=== PATIENT | male | born 1930 | race Caucasian/White ===

== ENCOUNTER 2017-09-24 11:55 | Emergency (ER) | payer OTHER ==
[~2017-09-24] VITALS: Ht 171.5 cm; Wt 67.1 kg
[~2017-09-24 11:55] MED LIST: ALLO100T PO; CLOP1TAB15 PO; FRRG PO; GARL1TAB13 PO; GLUC10007 PO; LISI5TAB3 PO; LVNIS30 SQ; PRAV20TA PO; PROB500T8 PO; RXC5 PO; SNK PO
[2017-09-24 12:05] VITALS: TEMP 36.3; Ht 171.5 cm; Wt 67.1 kg
[2017-09-24] MEDS ORDERED: DOXYCYCLINE HYCLATE 100 MG CAP PO STA (13:03)
[2017-09-24 13:17] VITALS: BP 173/90; PULSE 66; O2SAT 99
--- NOTE | 2017-09-24 13:38 | EMERGENCY ROOM VISIT NOTE ---
ED Visit Note First contact with patient: 12:37 CHIEF COMPLAINT: Tick bite HISTORY OF PRESENT ILLNESS: This 87-year-old male presents to the emergency department with concerns for a tick bite. He states that he noticed irritation last night when he went to bed, and noticed that the tick was embedded this morning when he got up to shower. 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 He is unsure how long the tick has been attached, but likely at least 24 hours. Patient is concerned about Lyme disease, and states he would like to be covered for this. He was able to remove the entire tick this morning, with no retained parts. He denies any symptoms of headaches, fevers or chills, joint pain, nausea or vomiting, rash. His tetanus is up-to-date. REVIEW OF SYSTEMS: A complete 10 point review of systems was reviewed with the patient with pertinent positives and negatives as per history of present illness. All else were negative. PMH: Reviewed in chart. MEDICATIONS: Reviewed in chart SOCIAL HISTORY: Patient lives at home. Non-smoker, occasional alcohol use. ALLERGIES: Reviewed in chart PHYSICAL EXAM: Vital Signs: Reviewed Nurse's notes. There is a small zone of inflammation and erythema on the left anterior chest around the spot where the tick was embedded. The skin is otherwise clear. There is no drainage. There is no tenderness to palpation and it is not warm. NEUROLOGICAL: Alert and cooperative. Sensory and motor functions grossly intact. ED COURSE: I examined the patient. There is a small zone of erythema, nontender does not appear to be cellulitic. This area was marked with a skin marker. The area was then cleansed with chlorhexidine and a thin film of bacitracin was applied, the area was covered with a Band-Aid. The patient was given a single dose of doxycycline 200 mg for prophylaxis against Lyme disease. The patient was noted to be quite hypertensive, he reports that he has "white coat syndrome" and that this always happens and has been confirmed by his doctor. His blood pressure did improve on recheck. He was encouraged to follow up with his PCP regarding his blood pressure. Patient was instructed on follow-up and signs of infection to monitor for, he verbalized understanding. Patient was also given strict return precautions if his symptoms worsen, he verbalized understanding. Patient was discharged home in stable condition and ambulatory. Medication Reconciliation: I attest that I have personally reviewed the patient' s current medication list. Blood pressure screening: The patient was found to have an elevated blood pressure and was referred to their primary doctor for recheck and further treatment. I discussed patient with Dr. Bae, who also saw the patient and agrees my assessment and plan. Current/Historical Medications Scheduled Allopurinol (Zyloprim), 100 MG PO HS Clopidogrel (Plavix), 75 MG PO HS Enoxaparin (Lovenox), 30 MG SQ QAM Ferrous Gluconate (Ferrous Gluconate), 324 MG PO TIDM Garlic (Hm Garlic), 1 TAB PO HS Glucosamine Sulfate (Glucosamine), 1,000 MG PO HS Lisinopril (Zestril), 2.5 MG PO HS Pravastatin (Pravachol ), 20 MG PO HS Senna (Senna Lax), 2 TAB PO HS Scheduled PRN Oxycodone HCl (Oxycodone HCl), 5-10 MG PO Q4H PRN for Pain Probenecid (Benemid), 500 MG PO DAILY PRN for PRN Allergies Coded Allergies: Acetaminophen (Verified Allergy, Unknown, "bad reaction, but not life threatening", 06/25/16) Diphenhydramine (Verified Adverse Reaction, Severe, "LIFE THREATENING", HYPOTENSION-LASTED 8 WEEKS, 06/25/16) Quinolones (Verified Adverse Reaction, Intermediate, HALLUCINATIONS, ) Aspirin (Verified Adverse Reaction, Unknown, FELT DEPRESSED, 06/25/16) Cefadroxil (Verified Adverse Reaction, Unknown, HALLUCINATIONS, 06/25/16) Cinnamon (Verified Adverse Reaction, Unknown, HYPERACTIVITY, 06/25/16) Ciprofloxacin (Verified Adverse Reaction, Unknown, HALLUCINATIONS, 06/25/16) Clove Oil (Verified Adverse Reaction, Unknown, HYPERACTIVITY, 06/25/16) Codeine (Verified Adverse Reaction, Unknown, mental status change, 06/25/16) Vital Signs Date Time Temp Pulse Resp B/P (MAP) Pulse Ox O2 Delivery O2 Flow Rate FiO2 09/24/17 13:17 66 16 173/90 99 Room Air 09/24/17 12:28 180/99 183/90 09/24/17 12:05 36.3 84 18 208/85 98 Room Air Medications Administered Medications (Trade) Dose Ordered Sig/Chris Route Start Time Stop Time Status Last Admin Dose Admin Doxycycline Hyclate (Vibramycin Cap) 200 mg NOW STAT PO 09/24/17 13:03 09/24/17 13:05 DC 09/24/17 13:15 200 MG Departure Information Impression Primary Impression: Tick bite Dispostion Home / Self-Care Condition GOOD Referrals Hillary Catalan M.D. (PCP) Patient Instructions ED Bite Tick Abx Tx, My [facility] Additional Instructions DISCHARGE INSTRUCTIONS & TREATMENT: Keep the area clean, you may apply a thin film of bacitracin ointment and cover with a Band-Aid for the next 3 days. Watch the area for signs of infection, including increased redness, swelling, pain, drainage from the area, or fever/chills. Please follow-up with your primary care provider in the next few weeks to be rechecked for any concern of developing Lyme disease. Please see your PCP or return to the emergency department immediately for any signs of infection, headaches, fevers, joint pain, unusual rash, or any other concerns. Problem Qualifiers Primary Impression: Tick bite Encounter type: initial encounter Qualified Codes: W57.XXXA - Bitten or stung by nonvenomous insect and other nonvenomous arthropods, initial encounter
--- NOTE | 2017-09-24 13:40 | EMERGENCY ROOM VISIT NOTE ---
ED Visit Note First contact with patient: 12:37 I have personally seen and evaluated the patient with the physician school health assistant. I agree with the diagnostic/management decisions and have personally been involved in these decisions and agree with the diagnosis.
== END 2017-09-24 13:45 | disposition home or self-care (01) ==
LOC: C.EDB 11:56 → C.EDD 13:45
DX: S20.362A Insect bite (nonvenomous) of left front wall of thorax, initial encounter (principal); W57.XXXA Bitten or stung by nonvenomous insect and other nonvenomous arthropods, initial encounter; Y92.73 Farm field as the place of occurrence of the external cause; R03.0 Elevated blood-pressure reading, without diagnosis of hypertension

== ENCOUNTER 2019-05-02 08:30 | Observation (INO) ==
--- NOTE | 2019-04-10 08:45 | PAT Medication Instructions ---
Medication Instructions Date of Service April 10, 2019 Home Medications allopurinol 300 mg PO HS clopidogrel [Plavix] 75 mg PO DAILY garlic 100 mg PO DAILY glucos sul [id number] [Glucosamine Chondroitin] 1 cap PO DAILY pravastatin 20 mg PO HS ASK your prescriber and surgeon clopidogrel [Plavix] 75 mg PO DAILY STOP taking 2 weeks before surgery (or as soon as possible if surgery is within 2 weeks) garlic 100 mg PO DAILY glucos sul [id number] [Glucosamine Chondroitin] 1 cap PO DAILY Take evening before surgery allopurinol 300 mg PO HS pravastatin 20 mg PO HS Other Notes If you have any questions please call us at [phone] or [phone] or [phone] or [phone]
--- NOTE | 2019-04-10 10:43 | Anesthesiology Consultation ---
Date of Service April 10, 2019 Assessment & Plan (1) Encounter for pre-operative examination: - Plavix: to hold 7 days prior to surgery per surgeon/prescriber (per patient). - Hx interatrial shunt: per 2014 ECHO; reviewed with Dr. Connelly- will flag on chart/PMHX but nothing further needed prior to surgery from his perspective. - PCP addendum: 04/30/19: "It should be noted that patient is medically cleared for surgery pending his bleeding studies are normal the day of his surgery." Coags ordered for AM DOS. Chart Review Chart Review: Acceptable Risk for Surgery (pending coags AM DOS) and Patient seen in Pre Admission Testing Consults Requested none Teaching & Discussion Pre-Anesthesia Teaching/Discussion Notes: Instructed NPO after midnight before surgery,except medications with 15 cc of water. Medication instructions provided according to the PAT guidelines. ASA ASA3 Proposed Anesthesia Anesthesia Type: General Risk / Benefits Reviewed With: PT / POA / Parent / Guardian, Accepts Plan and Informed Consent Obtained History Surgery Operation Date: 05/02/19 10:20 Proposed Procedures p Left Open Inguinal Hernia Repair - Vivek Marks, , FACS Height/Weight Height: 5 ft 6.5 in Weight: 64.8 kg Allergies Allergy/AdvReac Type Severity Reaction Status Date / Time diphenhydramine Allergy Severe HYPOTENSION- Verified 05/02/19 08:55 SIGNIFICANT X 8 WEEKS acetaminophen Allergy Intermediate SKIN Verified 05/02/19 08:58 WEEPING cefadroxil Allergy Intermediate HALLUCINATI Verified 05/02/19 08:58 ONS ciprofloxacin Allergy Intermediate HALLUCINATI Verified 05/02/19 08:55 ONS Quinolones Allergy Intermediate HALLUCINATI Verified 05/02/19 08:58 ONS aspirin AdvReac Intermediate DEPRESSION Verified 05/02/19 08:58 cinnamon AdvReac Intermediate HYPERACTIVI Verified 05/02/19 08:58 TY clove AdvReac Intermediate HYPERACTIVI Verified 05/02/19 08:58 TY codeine AdvReac Intermediate MENTAL Verified 05/02/19 08:58 STATUS CHANGES Cipro AdvReac Unknown HALLUCINATI Verified 06/25/16 06:45 ONS Medications Home Medications Medication Instructions Recorded Confirmed Last Taken allopurinol 300 mg tablet 300 mg PO HS #90 tab 04/23/19 05/02/19 05/01/19 20:30 clopidogrel 75 mg tablet 75 mg PO DAILY #90 tab 04/23/19 05/02/19 04/25/19 pravastatin 20 mg tablet 20 mg PO HS #90 tab 04/23/19 05/02/19 05/01/19 20:00 probenecid 500 mg tablet 500 mg PO DAILY PRN #90 tab 04/23/19 05/02/19 Unknown triamcinolone acetonide 0.1 % 1 appln TOPICAL BID #80 gm 04/23/19 05/02/19 04/30/19 08:00 topical cream Glucosamine 1 cap PO DAILY 05/02/19 05/02/19 04/18/19 colchicine 0.6 mg PO BID PRN 05/02/19 05/02/19 Unknown garlic 1 cap PO DAILY 05/02/19 05/02/19 04/18/19 tramadol [Ultram] 50 - 100 mg PO Q4H PRN #15 tab 05/02/19 Unknown NPO Date Last Intake of Fluids: 05/01/19 Time Last Intake of Fluids: 22:00 Date Last Intake of Solids: 05/01/19 Time Last Intake of Solids: 22:00 Past Medical History Medical History Acquired foot drop (Acute) Benign essential hypertension (Acute) Cervicalgia (Acute) History of TIA (transient ischemic attack) (Acute) Hyperkalemia (Acute) Osteoarthritis of right knee (Acute) Osteoarthrosis, generalized, multiple joints (Acute) Personal history of colonic polyps (Acute) Encounter for pre-operative examination BPPV (benign paroxysmal positional vertigo) Osteoarthritis Hyperlipidemia TIA (transient ischemic attack) 2013= INITIALLY ON ASA 325 BUT SIGNIFICANT DEPRESSION SYMPTOMS SO PATIENT SWITCHED TO PLAVIX Gout Prostate cancer White coat syndrome with hypertension Emphysema lung PER CXR 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 Exercise / Class Metabolic Activity II 4-5 Yardwork/Stairs/Walk up hill (ACTIVE HORNER) Past Family History Family History Mother Family history of diabetes mellitus Father Family history of diabetes mellitus Sister Family history of diabetes mellitus Brother Family history of diabetes mellitus Past Surgical History Surgical History History of prostate surgery History of lumbar surgery TOTAL 4 BACK SURGERIES (HARDWARE INTACT) History of knee surgery LEFT/RIGHT History of knee replacement LEFT/RIGHT History of hip surgery RT History of colonoscopy History of arthroplasty of left ankle H/O wrist surgery LEFT History of adenoidectomy History of herniorrhaphy RT INGUINAL History of nasal septoplasty History of tonsillectomy History of tooth extraction Past Anesthesia History No Hx of Anesthesia Complications and No Family Hx of Anesthesia Complications History of PONV No Hx of PONV and No Hx of Motion Sickness Social History Smoking Status: Never smoker Do You Dip or Chew Tobacco: No Hx Alcohol Use: No Hx Substance Use: No substance use type: does not use Review of Systems Patient denies chest pain, shortness of breath, dyspnea on exertion, reflux, cough, wheezing, palpitations. Physical Exam Vital Signs Last Vital Signs Temp 36.2 C L 05/02/19 09:05 Pulse 73 05/02/19 09:05 Resp 20 05/02/19 09:05 BP 186/92 H 05/02/19 09:05 Pulse Ox 99 05/02/19 09:05 VITALS BP 168/78 ("white coat hypertension" per patient; PCP monitors home readings) P 72 TEMP 97.9 SP02 98%RA RESP 18 PHYSICAL Full neck and c-spine range of motion. Full TMJ range of motion. TMD 3 finger breaths Mallampati Score 2 Dentition: intact, several caps/bridges throughout Lungs: clear throughout to auscultation Cardiac: regular rate and rhythm, no murmurs noted Spine: normal Carotid arteries: negative bruit Extremities: no edema ENMT Mouth: + poor dentition; no dentition abnormality Thyromental Distance: > or= 3.5 Finger Breadths Mallampati Class: II Neck normal visual inspection and trachea midline; neck extension not limited Respiratory normal respiratory effort Auscultation: lungs clear to auscultation bilaterally Cardiovascular Rate/Rhythm: regular rate and regular rhythm Heart Sounds: no murmur Vessels: no carotid bruit Musculoskeletal Spine: normal cervical ROM Neurologic moves all extremities Motor/Sensory: no sensory deficit Psychiatric Orientation: alert and oriented x 3 Testing Laboratory Results 04/10/19 11:00 PT 10.9 Seconds (9.0-12.0) 05/02/19 09:04 INR 1.1 (0.9-1.1) 05/02/19 09:04 APTT 27.1 Seconds (21.0-31.0) 05/02/19 09:04 03/26/19 SODIUM 141 POTASSIUM 4.5 CHLORIDE 109 CO2 28 BUN 21 CREATININE 1.02 GLUCOSE 103 Electrocardiogram Date: 04/10/19 SR with occasional PVC's at 70bpm. LAFB. Chest X-Ray Date: 04/10/19 Findings: + NAD The heart is enlarged and there is atherosclerotic calcification of the thoracic aorta. The pulmonary vasculature is non-congested. Emphysema and chronic interstitial thickening are similar to previous. Degenerative change and hyperkyphosis are noted in the thoracic spine. Fusion hardware is seen throughout the lumbar region. Echocardiogram Date: 12/25/13 EF 55%. No RWMA. Mild cLVH. Nonspecific MV thickening. Mild AI. Eccentric jet of AI directed against anterior mitral leaflet. Trace to mild PI. Interatrial shunt noted.
--- NOTE | 2019-04-10 11:17 | XRay Report ---
TWO VIEW CHEST CLINICAL HISTORY: Preoperative examination. FINDINGS: PA and lateral chest radiographs are compared to study dated 06/02/2016 and correlated with chest CT dated 06/27/2016. The PA view is degraded by patient rotation. The heart is enlarged and ther e is atherosclerotic calcification of the thoracic aorta. The pulmonary vasculature is noncongested. Emphysema and chronic interstitial thickening are similar to previous. No airspace consolidation or p leural effusion is identified. There is no pneumothorax. The skeletal structures are osteopenic. Dege nerative change and hyperkyphosis are noted in the thoracic spine. Fusion hardware is seen throughout the lumbar region. IMPRESSION: Cardiomegaly and emphysema with no active disease in the chest. Electronically signed by: Bimal Moore M.D. 04/10/2019 11:16 AM
[2019-04-10 12:44] LABS: Basophils # (auto) 0.04 K/uL (0-0.2); Basophils % (auto) 0.8 %; Eosinophils # (auto) 0.26 K/uL (0-0.5); Hematocrit (blood only) 37.6 % (42-52); Hemoglobin 12.3 g/dL (14.0-18.0); Immature Granulocytes # (auto) 0.01 K/uL (0.00-0.02); Immature Granulocytes % (auto) 0.2 %; Lymphocytes # (auto) 1.63 K/uL (1.2-3.4); Mean Corpuscular Hgb Conc 32.7 g/dL (32-36); Mean Corpuscular Volume 97.4 fL (80-100); Mean Platelet Volume 11.4 fL (7.4-10.4); Monocytes # (auto) 0.32 K/uL (0.11-0.59); Monocytes % (auto) 6.1 %; Neutrophils # (auto) 2.99 K/uL (1.4-6.5); Neutrophils % (auto) 56.9 %; Platelet Count 203 K/uL (130-400); RDW Coefficient of Variation 14.4 % (11.5-14.5); RDW Standard Deviation 51.2 fL (36.4-46.3); Red Blood Count 3.86 M/uL (4.7-6.1); White Blood Count 5.25 K/uL (4.8-10.8)
[2019-04-10 12:54] LABS: Alanine Aminotransferase 28 U/L (12-78); Albumin Level 3.7 gm/dl (3.4-5.0); Alkaline Phosphatase 85 U/L (45-117); Aspartate Aminotransferase 28 U/L (15-37); Bilirubin Direct < 0.1 mg/dl (0-0.2); Bilirubin,Total 0.4 mg/dl (0.2-1); Total Protein 7.1 gm/dl (6.4-8.2)
[~2019-05-02 08:30] MED LIST changes: -ALLO100T PO; +CEFAZOLIN 2000MG 2,000 MG/15 ML SYR IV SCH; -CLOP1TAB15 PO; -FRRG PO; -GARL1TAB13 PO; -GLUC10007 PO; -LISI5TAB3 PO; +LR 15ML/HR IV SCH; -LVNIS30 SQ; -PRAV20TA PO; -PROB500T8 PO; -RXC5 PO; -SNK PO
[2019-05-02 09:25] LABS: INR 1.1 (0.9-1.1); Partial Thromboplastin Time 27.1 Seconds (21.0-31.0); Prothrombin Time 10.9 Seconds (9.0-12.0)
--- NOTE | 2019-05-02 09:59 | History & Physical Bridge Note ---
Date of Service May 02, 2019 History & Physical Bridge Note I have examined the patient, reviewed the History & Physical and in the interval since the performance of the History & Physical I have noted the following changes of clinical significance: no changes noted
[2019-05-02] MEDS ORDERED: BUPIVACAINE 0.5 % 5 MG/1 ML MPF 30ML VIAL ONE (10:03)
[2019-05-02] MEDS ORDERED: BUPIVACAINE LIPOSOME 1.3% 266 MG/20 ML VIAL ONE (10:03)
[2019-05-02] MEDS ORDERED: ONDANSETRON INJ 2 MG/ML 2 ML VIAL ONE (10:04)
[2019-05-02] MEDS ORDERED: LIDOCAINE HCL 2% 2 ML VIAL/AMP(20MG/ML) INFIL ONE (10:04)
[2019-05-02] MEDS ORDERED: PROPOFOL IV EMULSION 10 MG/ML 20 ML VIAL IV ONE (10:04)
[2019-05-02] MEDS ORDERED: fentaNYL citrate 100 MCG/2 ML VIAL ONE (10:04)
[2019-05-02] MEDS ORDERED: ATROPINE SULFATE 0.1 MG/ML 10ML SYR IV PRN (10:50)
[2019-05-02] MEDS ORDERED: ePHEDrine sulfate 50 MG/ML AMP IV PRN (10:50)
[2019-05-02] MEDS ORDERED: PROMETHAZINE HCL 12.5 MG in SODIUM CHLORIDE 0.9% 50 ML IV PRN (10:50)
[2019-05-02] MEDS ORDERED: fentaNYL citrate 100 MCG/2 ML VIAL IV PRN (10:50)
[2019-05-02] MEDS ORDERED: NALOXONE HCL 0.4 MG/1 ML VIAL/CARP IV PRN (10:50)
[2019-05-02] MEDS ORDERED: ONDANSETRON INJ 2 MG/ML 2 ML VIAL IV PRN ×2 (10:50→12:48)
[2019-05-02] MEDS ORDERED: LABETALOL HCL IV 5 MG/ML 20ML IV ONE (11:12)
--- NOTE | 2019-05-02 11:29 | Operative Report ---
Post Operative Report Pre & Post Diagnosis Operation Date: 05/02/19 10:20 Pre-Op Diagnosis: Left Inguinal Hernia Post-Op Diagnosis: Left Inguinal Hernia Procedure Operation Date: 05/02/19 10:20 Actual Procedures p Left Open Inguinal Hernia Repair(Left) - Vivek Marks DO, FREDI Surgeon Vivek Marks DO, FREDI Rubber Flap Tuber Machine Operator Lukasz Mcgill Estimated Blood Loss 4 Findings Consistent with Post-Op Diagnosis Indirect inguinal hernia, high ligation of the sac. Repaired with Atrium polypropylene mesh. Specimens Cord lipoma Hernia sac Anesthesia Type General Complications none Disposition Accompanied Patient To Recovery: No Disposition: Recovery Room Indications 89-year-old male with symptomatic left inguinal hernia, desires repair. Plan for left inguinal hernia repair. The risks of the procedure were discussed, all questions were answered, and the patient agreed to proceed with surgery as planned. Description of Procedure The patient was properly identified, consented, and taken to the operating room where he was placed in the supine position. General endotracheal anesthesia was induced. SCDs and a safety belt were placed. Preoperative antibiotics were administered. The patient's groins and abdomen were prepped and draped in the standard sterile fashion. A surgical timeout was performed and all parties were in agreement that this was the correct patient and procedure to be performed and we continued as planned. Local anesthetic in the form of 0.5% Marcaine was injected along the proposed incision site. An oblique incision was made in the left groin and deepened down to subcutaneous tissue with electrocautery. The aponeurosis of the external oblique muscle was cleared of investing tissue. A small incision was made in the aponeurosis of the external oblique muscle with a knife and lengthened under direct visualization with Metzenbaum scissors. Flaps were raised cephalad and caudad on the posterior portion of the external oblique. The ilioinguinal nerve was identified preserved throughout the case. The cord structures were circumferentially dissected and encircled with a Patricia drain. A moderate sized indirect hernia was noted. The hernia sac was dissected away from the cord structures. The hernia sac was opened and no abdominal contents were noted. It was then twisted on itself and suture ligated with a 2-0 Vicryl suture and reduced back into the abdomen. The hernia sac was sent as specimen. There was also small cord lipoma that was ligated with 3-0 silk tie and sent to pathology as specimen. Hemostasis was achieved within the wound. A piece of atrium polypropylene mesh was sewn into place using interrupted 0 Nurolon sutures. It was secured to the pubic tubercle medially, the inguinal ligament caudad, and the conjoined tendon cephalad. The internal ring was recreated by securing the tails and could accommodate the tip of the surgeons fifth digit. The wound was irrigated and hemostasis confirmed. The aponeurosis of the external oblique was then closed with a running 3-0 Vicryl suture. The wound was irrigated. Shea's fascia was reapproximated with interrupted 3-0 Vicryl suture. Exparel mixed with Marcaine was injected at the conclusion of the case. The skin was closed with a running 4-0 Monocryl subcuticular suture, and Dermabond was placed over the incision. The patient was extubated in the operating room and taken to the PACU for recovery without apparent incident. All sponge, instrument, and needle counts were correct at the conclusion of the procedure. The patient tolerated the procedure well. The physician's marketing operations assistant was present and scrubbed for the entire the case. He was critical in positioning the patient, prepping and draping, retraction and exposure, repair of the hernia, closure of the incisions, and placement of the dressings. I attest to the content of the Intraoperative Record and any orders documented therein. Any exceptions are noted below.
[2019-05-02] MEDS: LABETALOL HCL IV 5 MG/ML 20ML IV PRN ×3 (11:57→12:05)
--- NOTE | 2019-05-02 12:14 | Anesthesiology Progress Note ---
Date of Service May 02, 2019 Anesthesia Post Procedure Vital Signs Vital Signs: Temp Pulse Resp BP Pulse Ox 05/02/19 12:10 71 23 167/85 H 95 05/02/19 12:00 71 23 177/100 H 95 05/02/19 11:50 74 20 188/93 H 100 05/02/19 11:42 36.1 C L 69 14 189/81 H 99 05/02/19 09:05 36.2 C L 73 20 186/92 H 99 Transfer of Care Handoff Completed per policy Notes Mental Status: alert / awake / arousable Patient Amnestic to Procedure: Yes Nausea / Vomiting: adequately controlled Pain: adequately controlled Airway Patency, RR, SpO2: stable & adequate BP & HR: stable & adequate Hydration State: stable & adequate Anesthetic Complications: no major complications apparent
[2019-05-02] MEDS ORDERED: TRAMADOL HCL 50 MG TABLET PO PRN (12:48)
[2019-05-02] MEDS ORDERED: IBUPROFEN 200 MG TAB PO PRN (12:48)
[2019-05-02] MEDS ORDERED: MoRPHine SULFATE 4 MG/ML 1 ML CARP\\VIAL IV PRN (12:48)
[2019-05-02] MEDS ORDERED: ALLOPURINOL 300 MG TAB PO SCH (21:00)
[2019-05-02] MEDS ORDERED: PRAVASTATIN SOD 20 MG TAB PO SCH (21:00)
--- NOTE | 2019-05-03 07:52 | Surgery Progress Note ---
Date of Service May 03, 2019 Assessment & Plan (1) Inguinal hernia: s/p left inguinal hernia, doing well. discharge to home f/u in clinic wound care and activity restrictions reviewed Present on Admission?: Yes Subjective POD1 left inguinal hernia repair. Doing well, minimal pain. Physical Exam Constitutional: WD/WN, vitals as above Gastrointestinal (Abdomen): incision with dermabond, some echymosis, no infection, no recurrence Results & Data Vital Signs (Past 12 Hours) Vital Signs Temp Pulse Resp BP Pulse Ox 05/03/19 07:37 36.7 C 81 15 130/76 94 05/03/19 03:29 36.9 C 66 15 134/70 95 05/02/19 23:42 151/76 H 05/02/19 23:01 36.8 C 60 15 161/55 H 99
--- NOTE | 2019-05-03 07:55 | Anesthesiology Progress Note ---
Date of Service May 03, 2019 Anesthesia Post Procedure Vital Signs Vital Signs: Temp Pulse Resp BP BP Pulse Ox 05/03/19 07:37 36.7 C 81 15 130/76 94 05/03/19 03:29 36.9 C 66 15 134/70 95 05/02/19 23:42 151/76 H 05/02/19 23:01 36.8 C 60 15 161/55 H 99 05/02/19 19:26 36.5 C 62 16 151/68 H 96 05/02/19 15:20 36.5 C 57 L 16 154/71 H 95 05/02/19 14:35 60 15 146/60 H 98 05/02/19 13:35 63 15 154/77 H 97 05/02/19 13:05 36.4 C L 61 16 179/83 H 96 05/02/19 12:35 36.3 C L 57 L 16 182/86 H 95 05/02/19 12:20 36.2 C L 61 16 173/85 H 96 05/02/19 12:10 71 23 167/85 H 95 05/02/19 12:00 71 23 177/100 H 95 05/02/19 11:50 74 20 188/93 H 100 05/02/19 11:42 36.1 C L 69 14 189/81 H 99 05/02/19 09:05 36.2 C L 73 20 186/92 H 99 Transfer of Care Handoff Completed per policy Notes Mental Status: alert / awake / arousable Patient Amnestic to Procedure: Yes Nausea / Vomiting: adequately controlled Pain: adequately controlled Airway Patency, RR, SpO2: stable & adequate BP & HR: stable & adequate Hydration State: stable & adequate Anesthetic Complications: no major complications apparent and Pt Satisfied with anesthetic care
[2019-05-03] MEDS ORDERED: CLOPIDOGREL BISULFATE 75 MG TAB PO SCH (09:00)
--- NOTE | 2019-05-08 14:56 | Discharge Summary ---
Date of Service May 08, 2019 Principal Diagnosis Left inguinal hernia Discharge Exam Gastrointestinal (Abdomen) Inspection/Auscultation: + abdominal surgical incision (clean, dry, minimal ecchymosis) Percussion/Palpation: abdomen soft Discharge Data Allergies Allergy/AdvReac Type Severity Reaction Status Date / Time diphenhydramine Allergy Severe HYPOTENSION- Verified 05/02/19 08:55 SIGNIFICANT X 8 WEEKS acetaminophen Allergy Intermediate SKIN Verified 05/02/19 08:58 WEEPING cefadroxil Allergy Intermediate HALLUCINATI Verified 05/02/19 08:58 ONS ciprofloxacin Allergy Intermediate HALLUCINATI Verified 05/02/19 08:55 ONS Quinolones Allergy Intermediate HALLUCINATI Verified 05/02/19 08:58 ONS aspirin AdvReac Intermediate DEPRESSION Verified 05/02/19 08:58 cinnamon AdvReac Intermediate HYPERACTIVI Verified 05/02/19 08:58 TY clove AdvReac Intermediate HYPERACTIVI Verified 05/02/19 08:58 TY codeine AdvReac Intermediate MENTAL Verified 05/02/19 08:58 STATUS CHANGES Cipro AdvReac Unknown HALLUCINATI Verified 06/25/16 06:45 ONS Procedures Performed Operation Date: 05/02/19 10:20 Actual Procedures p Left Open Inguinal Hernia Repair(Left) - Vivek Marks DO, FACS Hospital Course (1) Inguinal hernia: 89 y/o male taken to the OR for elective left inguinal hernia repair and tolerated the procedure well. He was observed on the surgical floor overnight given his age and medical history. He was able to void without difficulty. He was tolerating diet and oral analgesics in the morning and was stable for discharge. Total Time Total Time Spent Total Time Spent (In Minutes): 15 Discharge Plan Discharge Items Patient Disposition: Home - Self-Care Reason For Visit: Left Inguinal Hernia Discharge Diagnosis: open inguinal hernia repair Discharge Goals: Decrease discomfort and Improve function Activity: Per 'Additional Instructions' section Lifting: No more than 10 pounds Bathing Comment: You may shower starting today Exercise/Sports: Wait until after follow-up appointment Driving/Machine Use: Resume 3 days after discharge Non-emergency contact: Surgeon Call non-emergency contact if: you have any medication questions, your symptoms worsen, your pain is not controlled, your pain is concerning for you, you have a fever, your temperature is above 101.5 and your wound has increased redness Follow-up/Referrals: Hillary Catalan MD [Primary Care Provider] - Vivek Marks DO, FACS [Physician] - (Please follow up within 2 weeks. You may call the office sooner if you have any questions/concerns) Diet: Regular Addtl Provider Instructions: You may resume taking your plavix on TuesdayMay 04. Prescriptions: New tramadol [Ultram] 50 mg tablet 50 - 100 mg PO Q4H PRN (Reason: pain) Qty: 15 RF: 0 Continued allopurinol 300 mg tablet 300 mg PO HS Qty: 90 RF: 3 pravastatin 20 mg tablet 20 mg PO HS Qty: 90 RF: 3 probenecid 500 mg tablet 500 mg PO DAILY PRN (Reason: gout) Qty: 90 RF: 3 triamcinolone acetonide 0.1 % cream 1 appln topical BID Qty: 80 RF: 3 colchicine 0.6 mg tablet 0.6 mg PO BID PRN (Reason: gout pain) RF: 0 garlic capsule 1 cap PO DAILY RF: 0 Glucosamine capsule 1 cap PO DAILY RF: 0 Discontinued clopidogrel [Plavix] 75 mg tablet 75 mg PO DAILY Qty: 90 RF: 3 Stand-Alone Forms: [facility], [facility]/Other Patient Handouts: Eat Healthy Discharge Orders: Discharge Order (Routine); Ordered 05/03/19 Ordered By: Lukasz Mcgill Admission Data Admit Date/Time: 05/02/19 11:52 Attending Provider: Vivek Marks Admit Provider: Vivek Marks Primary Care Provider: Hillary Catalan Service: Surgical Services Other Interventions: Discharge Summary Assessment (RN) Last Done: 05/03/19 10:02 DC Date/Time DO NOT enter until pt leaves facility: 05/03/19 12:30
== END 2019-05-03 12:30 | disposition home or self-care (01) ==
LOC: 3N 08:30 → ASU 08:30

== ENCOUNTER 2020-05-01 13:04 | Observation (INO) ==
--- NOTE | 2020-05-01 13:47 | XRay Report ---
XR chest 1V portable CLINICAL HISTORY: Right-sided numbness. COMPARISON STUDY: Chest CT June 27, 2016. Chest radiograph April 10, 2019. FINDINGS: Incidental note is made of severe osteoarthrosis of the bilateral glenohumeral joints. Mild cardiomegaly is unchanged. There is no evidence for pulmonary edema. There is no pneumothorax or ple ural effusion. There is no consolidation. Lumbar spine hardware is partially imaged. IMPRESSION: No acute cardiopulmonary findings. ACT 112: Negative or not required by law. Electronically signed by: Kirk Bentley M.D. 05/01/2020 1:46 PM
--- NOTE | 2020-05-01 13:47 | Emergency Department Note ---
Impression & Plan Transient cerebral ischemia, High serum chloride, HTN (hypertension) ED Provider Note NAME: HOMER BARNES AGE: 89 SEX: M : 1930 ARRIVES VIA: Walk-In INFORMANT: Patient ED PROVIDER(S): Jr Kimble DO CHIEF COMPLAINT: Right side tingling HPI: Patient is a 89-year-old male who presents the ER for right-sided tingling. Patient notes that this has been going off and on for the past 3 weeks. He notes they last for about 10 to 15 seconds at a time and then remit. There is no true exacerbating or remitting factors. He never has any weakness. He does have a history of a previous TIA. He was seen by his PCP today and referred in for further evaluation. He has absolutely no other symptoms associated with this. 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 Denies any headache, change in vision, chest pain shortness of breath nausea vomiting or diarrhea. He was referred in by his PCP for evaluation for p ossible stroke. ROS: See above HPI for pertinent positives & negatives. A total of 10 systems reviewed and were otherwise negative. PAST MEDICAL HISTORY:See Below PAST SURGICAL HISTORY:See Below FAMILY HISTORY:See Below SOCIAL HISTORY:See Below HOME MEDICATIONS:See Below ALLERGIES:See Below VITALS:See Below PHYSICAL EXAMINATION: GENERAL: Sitting up in bed, alert, well appearing, well nourished, no distress, non-toxic EYE EXAM: normal conjunctiva. PERRL and EOM's grossly intact. OROPHARYNX: no exudate, no erythema, lips, buccal mucosa, and tongue normal and mucous membranes are moist NECK: supple, no nuchal rigidity, no adenopathy, non-tender LUNGS: Clear to auscultation. Normal chest wall mechanics HEART: no murmurs, S1 normal and S2 normal ABDOMEN: abdomen soft, non-tender, normo-active bowel sounds, no masses, no rebound or guarding. BACK: Back is symmetrical on inspection and there is no deformity, no midline tenderness, no CVA tenderness. SKIN: no rashes and no bruising UPPER EXTREMITIES: upper extremities are grossly normal. LOWER EXTREMITIES: No pitting edema. NEURO EXAM: Normal sensorium, cranial nerves II-XII intact, normal speech, no weakness of arms, flexion and extension of the bilateral hips, knees and left ankle 5 out of 5 bilaterally. No dorsiflexion of right foot. No drift. Finger to nose intact. Gross sensation intact. MEDICAL DECISION MAKING: Patient is an 89-year-old male who presents the ER for right-sided paresthesias which have been coming and going for the past 3 weeks. Notes the last for 15 to 20 seconds at a time and then completely beatrice. He is completely neurologically intact. He does have dropfoot but notes that that has been present since his surgery. IV was established blood work was obtained and showed no significant leukocytosis or anemia. INR was unremarkable. BMP with slightly elevated chloride. LFTs bilirubin was unremarkable. Troponin was detectable but not positive. He had no chest pain. 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 Nothing that I believe is causing his symptoms at this time. Discussed with neurology and they rec ommend admission for complete work-up from a stroke standpoint as they are concerned for possible thalamic infarct. Triage Nursing notes reviewed. Prior medical records reviewed Vital Signs: reviewed and remarkable for HTN Differential diagnosis: Differential Diagnosis includes but is not limited to ischemic Stroke, hemorrhagic stroke, bells palsy, mass, neoplasm, migraine headache, seizure, subarachnoid hemorrhage, TIA, and transient global amnesia. ER treatment provided: See below Diagnostics interpreted by me: ECG: Sinus rhythm rate of 68 Left axis No PVCs Normal QTC Cardiac Monitoring: An order was placed for continuous cardiac monitoring. The monitor shows a rate of 62 with sinus rhythm. Laboratory studies: As stated above and show below. 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 Consultation(s): Maye with Dr. Carter Canas who recommends bleed stroke work-up Discussed with Dr. 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 Osteoarthritis Osteoarthritis of right knee (Acute) Osteoarthrosis, generalized, multiple joints (Acute) Personal history of colonic polyps (Acute) Prostate cancer TIA (transient ischemic attack) 2014= INITIALLY ON ASA 325 BUT SIGNIFICANT DEPRESSION SYMPTOMS SO PATIENT SWITCHED TO PLAVIX TIA (transient ischemic attack) White coat syndrome with hypertension Surgical History H/O wrist surgery LEFT History of adenoidectomy History of arthroplasty of left ankle History of colonoscopy History of herniorrhaphy RT INGUINAL History of hip surgery RT History of knee replacement LEFT/RIGHT History of knee surgery LEFT/RIGHT History of lumbar surgery TOTAL 4 BACK SURGERIES (HARDWARE INTACT) History of nasal septoplasty History of prostate surgery History of tonsillectomy History of tooth extraction S/P inguinal hernia repair 05/02/19 open left- Dr. 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 Beliefs That Will Affect Care: None Current Living Situation: Spouse Feels Safe at Home: Yes Smoking Status: Never smoker Second Hand Exposure: No ; Hx Alcohol Use: No Hx Substance Use: No Allergies Allergies Allergy/AdvReac Type Severity Reaction Status Date / Time diphenhydramine Allergy Severe HYPOTENSION- Verified 05/01/20 18:09 SIGNIFICANT X 8 WEEKS acetaminophen Allergy Intermediate SKIN Verified 05/01/20 18:09 WEEPING cefadroxil Allergy Intermediate HALLUCINATI Verified 05/01/20 18:09 ONS ciprofloxacin Allergy Intermediate HALLUCINATI Verified 05/01/20 18:09 ONS Quinolones Allergy Intermediate HALLUCINATI Verified 05/01/20 18:09 ONS aspirin AdvReac Intermediate DEPRESSION Verified 05/01/20 18:09 cinnamon AdvReac Intermediate HYPERACTIVI Verified 05/01/20 18:09 TY clove AdvReac Intermediate HYPERACTIVI Verified 05/01/20 18:09 TY codeine AdvReac Intermediate MENTAL Verified 05/01/20 18:09 STATUS CHANGES Cipro AdvReac Unknown HALLUCINATI Verified 06/25/16 06:45 ONS Home Meds Home Medications Medication Instructions Recorded Confirmed colchicine 0.6 mg PO BID PRN 05/02/19 05/01/20 garlic 1,000 mg capsule 1,000 mg PO QDD 05/28/19 05/01/20 glucosamine sulfate 500 mg tablet 500 mg PO QDD tab 05/28/19 05/01/20 allopurinol 300 mg PO QDD 05/01/20 05/01/20 amlodipine 2.5 mg PO QDD 05/01/20 05/01/20 clopidogrel 75 mg PO QDD 05/01/20 05/01/20 pravastatin 20 mg PO QDD 05/01/20 05/01/20 Results & Data (ED) Vital Signs Vital Signs - 24 hr 05/01/20 13:06 05/01/20 16:22 05/01/20 17:45 Temperature 36.7 C Temperature Source Oral Pulse Rate 76 Pulse Rate [Right Finger] 58 L 62 Respiratory Rate 20 18 18 Respiratory Effort / Characteristics Non-Labored Spontaneous Respiratory Depth Normal Blood Pressure 182/92 H Blood Pressure [Right Arm] 194/89 H 185/88 H Blood Pressure Mean 122 Blood Pressure Mean [Right Arm] 124 120 Blood Pressure Position [Right Arm] Sitting Sitting Pulse Oximetry 99 97 97 Oxygen Delivery Method Room Air Room Air Room Air Sepsis Recent Fever Within 48 Hours No Sepsis New/Unexplained Change in Mental Status N/A Sepsis Action Taken by Nursing No Action Required Laboratory Data Result diagrams: 05/01/20 13:55 05/01/20 13:55 Lab Results 05/01/20 05/01/20 05/01/20 Range/Units 13:51 13:55 13:55 WBC 5.41 (4.8-10.8) K/uL RBC 4.09 L (4.7-6.1) M/uL Hgb 13.0 L (14.0-18.0) g/dL Hct 39.8 L (42-52) % MCV 97.3 (80-100) fL MCH 31.8 (25-34) pg MCHC 32.7 (32-36) g/dL RDW Std Deviation 51.1 H (36.4-46.3) fL RDW Coeff of Huyen 14.3 (11.5-14.5) % Plt Count 214 (130-400) K/uL MPV 11.2 H (7.4-10.4) fL Immature Gran % (Auto) 0.2 % Neut % (Auto) 60.0 % Lymph % (Auto) 30.9 % Snyder % (Auto) 6.7 % Eos % (Auto) 1.5 % Baso % (Auto) 0.7 % Neut # (Auto) 3.25 (1.4-6.5) K/uL Lymph # (Auto) 1.67 (1.2-3.4) K/uL Snyder # (Auto) 0.36 (0.11-0.59) K/uL Eos # (Auto) 0.08 (0-0.5) K/uL Baso # (Auto) 0.04 (0-0.2) K/uL Immature Gran # (Auto) 0.01 (0.00-0.02) K/uL PT 11.1 (9.0-12.0) Seconds INR 1.1 (0.9-1.1) APTT 27.6 (21.0-31.0) Seconds PTT Ratio 1.0 Sodium (136-145) mmol/L Potassium (3.5-5.1) mmol/L Chloride (98-107) mmol/L Carbon Dioxide (21-32) mmol/L Anion Gap (3-11) BUN (7-18) mg/dl Creatinine (0.6-1.4) mg/dl Est Cr Clr Drug Dosing ml/min Est GFR ( Amer) Est GFR (Non-Af Amer) BUN/Creatinine Ratio (10-20) Glucose (70-99) mg/dl POC Glucose 98 (70-99) mg/dl Calcium (8.5-10.1) mg/dl Magnesium (1.8-2.4) mg/dl Total Bilirubin (0.2-1) mg/dl AST (15-37) U/L ALT (12-78) U/L Alkaline Phosphatase (45-117) U/L Troponin I (0-0.045) ng/ml Total Protein (6.4-8.2) gm/dl Albumin (3.4-5.0) gm/dl Globulin (2.5-4.0) gm/dl Albumin/Globulin Ratio (0.9-2) 05/01/20 Range/Units 13:55 WBC (4.8-10.8) K/uL RBC (4.7-6.1) M/uL Hgb (14.0-18.0) g/dL Hct (42-52) % MCV (80-100) fL MCH (25-34) pg MCHC (32-36) g/dL RDW Std Deviation (36.4-46.3) fL RDW Coeff of Huyen (11.5-14.5) % Plt Count (130-400) K/uL MPV (7.4-10.4) fL Immature Gran % (Auto) % Neut % (Auto) % Lymph % (Auto) % Snyder % (Auto) % Eos % (Auto) % Baso % (Auto) % Neut # (Auto) (1.4-6.5) K/uL Lymph # (Auto) (1.2-3.4) K/uL Snyder # (Auto) (0.11-0.59) K/uL Eos # (Auto) (0-0.5) K/uL Baso # (Auto) (0-0.2) K/uL Immature Gran # (Auto) (0.00-0.02) K/uL PT (9.0-12.0) Seconds INR (0.9-1.1) APTT (21.0-31.0) Seconds PTT Ratio Sodium 143 (136-145) mmol/L Potassium 4.6 (3.5-5.1) mmol/L Chloride 111 H (98-107) mmol/L Carbon Dioxide 26 (21-32) mmol/L Anion Gap 6.0 (3-11) BUN 24 H (7-18) mg/dl Creatinine 0.99 (0.6-1.4) mg/dl Est Cr Clr Drug Dosing 46.9 ml/min Est GFR ( Amer) 78.5 Est GFR (Non-Af Amer) 67.7 BUN/Creatinine Ratio 24.0 H (10-20) Glucose 98 (70-99) mg/dl POC Glucose (70-99) mg/dl Calcium 9.4 (8.5-10.1) mg/dl Magnesium 2.1 (1.8-2.4) mg/dl Total Bilirubin 0.5 (0.2-1) mg/dl AST 27 (15-37) U/L ALT 24 (12-78) U/L Alkaline Phosphatase 87 (45-117) U/L Troponin I 0.018 (0-0.045) ng/ml Total Protein 7.8 (6.4-8.2) gm/dl Albumin 3.9 (3.4-5.0) gm/dl Globulin 3.9 (2.5-4.0) gm/dl Albumin/Globulin Ratio 1.0 (0.9-2) Administered Medications Ioversol (Optiray 320 125ml) 120 ml IV ONCE PRN PRN Reason: Interaction Checking Stop: 05/05/20 16:09 Last Admin: 05/01/20 16:10 Dose: 120 ml Documented by: [id number] Discharge Plan Visit Data Chief Complaint: Neuro Symptoms/Deficit Stated Complaint: NUMBNESS 3-4X PER DAY ED Provider: Jr Kimble Discharge Problem: Transient cerebral ischemia, High serum chloride, HTN (hypertension) Forms Stand Alone Forms: [facility] Prescriptions Prescriptions: No Action garlic 1,000 mg capsule 1,000 mg PO QDD RF: 0 glucosamine sulfate [Glucosamine] 500 mg tablet 500 mg PO QDD RF: 0 colchicine 0.6 mg tablet 0.6 mg PO BID PRN (Reason: Gout Flare Up Pain) RF: 0 amlodipine 2.5 mg tablet 2.5 mg PO QDD RF: 0 clopidogrel 75 mg tablet 75 mg PO QDD RF: 0 allopurinol 300 mg tablet 300 mg PO QDD RF: 0 pravastatin 20 mg tablet 20 mg PO QDD RF: 0 Discharge Problem: Transient cerebral ischemia Qualifiers: Transient cerebral ischemia type: unspecified Qualified Code(s): G45.9 - Transient cerebral ischemic attack, unspecified
[2020-05-01 14:27] LABS: INR 1.1 (0.9-1.1); Partial Thromboplastin Time 27.6 Seconds (21.0-31.0); Prothrombin Time 11.1 Seconds (9.0-12.0)
[2020-05-01 14:29] LABS: Albumin Level 3.9 gm/dl (3.4-5.0); Calcium 9.4 mg/dl (8.5-10.1); Creatinine Clr Calc Pharmacy 46.9 ml/min; Est GFR (African American) 78.5; Est GFR (Non-African American) 67.7; Magnesium 2.1 mg/dl (1.8-2.4); Potassium 4.6 mmol/L (3.5-5.1)
[2020-05-01 14:34] LABS: Basophils # (auto) 0.04 K/uL (0-0.2); Basophils % (auto) 0.7 %; Bilirubin,Total 0.5 mg/dl (0.2-1); Eosinophils # (auto) 0.08 K/uL (0-0.5); Eosinophils % (auto) 1.5 %; Globulin 3.9 gm/dl (2.5-4.0); Hematocrit (blood only) 39.8 % (42-52); Immature Granulocytes # (auto) 0.01 K/uL (0.00-0.02); Immature Granulocytes % (auto) 0.2 %; Lymphocytes # (auto) 1.67 K/uL (1.2-3.4); Lymphocytes % (auto) 30.9 %; Mean Corpuscular Hemoglobin 31.8 pg (25-34); Mean Corpuscular Hgb Conc 32.7 g/dL (32-36); Mean Corpuscular Volume 97.3 fL (80-100); Mean Platelet Volume 11.2 fL (7.4-10.4); Monocytes # (auto) 0.36 K/uL (0.11-0.59); Monocytes % (auto) 6.7 %; Neutrophils # (auto) 3.25 K/uL (1.4-6.5); Platelet Count 214 K/uL (130-400); RDW Coefficient of Variation 14.3 % (11.5-14.5); RDW Standard Deviation 51.1 fL (36.4-46.3); Red Blood Count 4.09 M/uL (4.7-6.1); Total Protein 7.8 gm/dl (6.4-8.2); Troponin I 0.018 ng/ml (0-0.045); White Blood Count 5.41 K/uL (4.8-10.8)
[2020-05-01] MEDS ORDERED: OPTIRAY 320 125ml IV PRN (16:10)
--- NOTE | 2020-05-01 16:20 | CT Scan Report ---
CT head/brain wo con CLINICAL HISTORY: Stroke evaluation COMPARISON STUDY: No previous studies for comparison. TECHNIQUE: Axial CT of the brain is performed from the vertex to the skull base. IV contrast was not administered for this examination. A dose lowering technique was utilized adhering to the principles of ALARA. CT DOSE: FINDINGS: No intra or extra-axial mass lesions are visualized. There is no CT evidence of acute cortical infarc tion. There is no evidence of midline shift. There is no acute hemorrhage. No calvarial fractures ar e visualized. There are moderate white matter hypodensities likely on a small vessel basis. 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 There is no evidence of acute sinusitis IMPRESSION: No acute intracranial findings ACT 112: Negative or not required by law. Electronically signed by: Cristi Mcwilliams M.D. 05/01/2020 4:18 PM
--- NOTE | 2020-05-01 16:31 | CT Scan Report ---
CT angio neck with con HISTORY: Mental status change Stroke evaluation TECHNIQUE: Multiaxial CT angiography of the neck was performed IV contrast: None. All measurements w ere calculated based on NASCET criteria. Maximum intensity projection images were also obtained. A dose lowering technique was utilized adhering to the principles of ALARA. COMPARISON STUDY: None. FINDINGS: Severe atherosclerotic change throughout the arterial structures of the carotid as well as vertebral basilar systems. Severe tortuosity of the internal carotid arteries bilaterally. Significant plaque formation at the carotid bifurcations and proximal internal carotid arteries bilat erally. Estimated narrowing is 50-70% bilaterally. The vertebral basilar system appears to be grossly intact. IMPRESSION: 1. Severe tortuosity and ectasia of the arterial structures of the neck. 2. Significant plaque formation of the common carotid arteries bilaterally with no evidence for high grade or critical stenosis at those sites. 3. 50-70% narrowing of the carotid bifurcations and proximal internal carotid arteries bilaterally. ACT 112: Negative or not required by law. The above report was generated using voice recognition software. It may contain grammatical, syntax or spelling errors. Electronically signed by: Juan Sanchez M.D. 05/01/2020 4:30 PM
--- NOTE | 2020-05-01 16:39 | CT Scan Report ---
CT angio head w con HISTORY: Mental status change Stroke evaluation TECHNIQUE: Multiaxial CT angiography of the head was performed IV contrast: 120 cc nonionic Maximu m intensity projection images were also obtained. A dose lowering technique was utilized adhering to the principles of ALARA. COMPARISON: None. 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 Weblike stenosis right posterior cerebral at its fouzia gin. 50%/60% narrowing of the proximal right middle cerebral artery with scattered atherosclerotic plaque formation of the left middle cerebral artery. Anterior circulation appears to be intact. IMPRESSION: 1. 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 2. 50% narrowing origin right posterior cerebral artery. 3. 50/60% stenosis origin left middle cerebral artery. ACT 112: Negative or not required by law. The above report was generated using voice recognition software. It may contain grammatical, syntax or spelling errors. Electronically signed by: Juan Sanchez M.D. 05/01/2020 4:37 PM
[2020-05-01] MEDS ORDERED: ONDANSETRON INJ 2 MG/ML 2 ML VIAL IV PRN (18:44)
[2020-05-01] MEDS ORDERED: ZOLPIDEM TARTRATE 5 MG TAB PO PRN (18:44)
--- NOTE | 2020-05-01 18:44 | History & Physical Report ---
Date of Service May 01, 2020 Assessment & Plan (1) TIA (transient ischemic attack): Patient is being admitted under OBS for history of paresthesias. He does have hisotry of TIA in the past. He has multiple stenosis noted on his CTA of neck and head, but none appear to require intervention. CTA of Head: 1. 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 2. 50% narrowing origin right posterior cerebral artery. 3. 50/60% stenosis origin left middle cerebral artery. No acute stroke, will obtain MRI. Consider consult neuro (2) Benign essential hypertension: will resume BP meds (3) Osteoarthrosis, generalized, multiple joints: will resume home meds. Patient has history of gout: will resume allopurinol DVT: short stay, anticipate discharge in am. History of Present Illness Primary Care Provider: Hillary Catalan MD This is a pleasant 89-year-old male who has a past medical history of TIA presents to the ER with 3 to week history of intermittent paresthesias on his right side mainly in his right arm and right leg. These paresthesias lasts about 30 to 40 seconds they do not occur daily. He reports the mainly occur when he sitting down for dinner. Patient denies any other complaints such as weakness, numbness, dizziness, nausea, vomiting, blurry vison, chest pain. 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 He states he spents hours in his famr. Allergies Allergy/AdvReac Type Severity Reaction Status Date / Time diphenhydramine Allergy Severe HYPOTENSION- Verified 05/01/20 18:09 SIGNIFICANT X 8 WEEKS acetaminophen Allergy Intermediate SKIN Verified 05/01/20 18:09 WEEPING cefadroxil Allergy Intermediate HALLUCINATI Verified 05/01/20 18:09 ONS ciprofloxacin Allergy Intermediate HALLUCINATI Verified 05/01/20 18:09 ONS Quinolones Allergy Intermediate HALLUCINATI Verified 05/01/20 18:09 ONS aspirin AdvReac Intermediate DEPRESSION Verified 05/01/20 18:09 cinnamon AdvReac Intermediate HYPERACTIVI Verified 05/01/20 18:09 TY clove AdvReac Intermediate HYPERACTIVI Verified 05/01/20 18:09 TY codeine AdvReac Intermediate MENTAL Verified 05/01/20 18:09 STATUS CHANGES Cipro AdvReac Unknown HALLUCINATI Verified 06/25/16 06:45 ONS Home Medications Home Medications Medication Instructions Recorded Confirmed Type colchicine 0.6 mg PO BID PRN 05/02/19 05/01/20 History garlic 1,000 mg capsule 1,000 mg PO QDD 05/28/19 05/01/20 History glucosamine sulfate 500 mg tablet 500 mg PO QDD tab 05/28/19 05/01/20 History allopurinol 300 mg PO QDD 05/01/20 05/01/20 History amlodipine 2.5 mg PO QDD 05/01/20 05/01/20 History clopidogrel 75 mg PO QDD 05/01/20 05/01/20 History pravastatin 20 mg PO QDD 05/01/20 05/01/20 History Past Med/Surg History Medical History Acquired foot drop (Acute) Benign essential hypertension (Acute) BPPV (benign paroxysmal positional vertigo) Cervicalgia (Acute) Emphysema lung PER CXR Gout History of TIA (transient ischemic attack) (Acute) Hyperkalemia (Acute) Hyperlipidemia 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 Osteoarthritis Osteoarthritis of right knee (Acute) Osteoarthrosis, generalized, multiple joints (Acute) Personal history of colonic polyps (Acute) Prostate cancer TIA (transient ischemic attack) 2013= INITIALLY ON ASA 325 BUT SIGNIFICANT DEPRESSION SYMPTOMS SO PATIENT SWITCHED TO PLAVIX TIA (transient ischemic attack) White coat syndrome with hypertension Surgical History H/O wrist surgery LEFT History of adenoidectomy History of arthroplasty of left ankle History of colonoscopy History of herniorrhaphy RT INGUINAL History of hip surgery RT History of knee replacement LEFT/RIGHT History of knee surgery LEFT/RIGHT History of lumbar surgery TOTAL 4 BACK SURGERIES (HARDWARE INTACT) History of nasal septoplasty History of prostate surgery History of tonsillectomy History of tooth extraction S/P inguinal hernia repair 05/02/19 open left- Dr. 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 Beliefs That Will Affect Care: None Current Living Situation: Spouse and Family Feels Safe at Home: Yes Smoking Status: Never smoker Second Hand Exposure: No ; Hx Alcohol Use: No Hx Substance Use: No Review of Systems Constitutional: no sweats and no malaise Physical Exam Constitutional: WD/WN, vitals as above well developed Appears younger than stated age Eyes: PERRL, conjunctivae normal, anicteric sclerae ENMT: external ear and nose normal, oropharynx normal Neck: trachea midline, no thyromegaly Respiratory: normal respiratory effort, lungs clear to auscultation Cardiovascular: RRR, no murmur, no edema Musculoskeletal: gouty second toe on left foot. missing 5th digit of right hand. Skin: no rashes, warm and dry Neurologic: PERRL, EOMI, accommodation nl, no face palsy, no dysarthria Psychiatric: A+Ox3, euthymic affect Results & Data Results & Data ([facility]) Vital Signs (Past 12 Hours) Vital Signs Temp Pulse Pulse Resp BP BP Pulse Ox 05/01/20 17:45 62 18 185/88 H 97 05/01/20 16:22 58 L 18 194/89 H 97 05/01/20 13:06 36.7 C 76 20 182/92 H 99 PG Care Time/CCT Total # of Minutes Spent Total Time Spent with Patient: Total time spent is greater than 50% in coordination of care (as documented) at patient's floor/unit and/or counseling patient: Coding Level of Care Code 55465 OBS Care - Level 3 Diagnoses TIA (transient ischemic attack) G45.9 Benign essential hypertension I10 Osteoarthrosis, generalized, multiple joints M15.9
[2020-05-01] MEDS ORDERED: PHARMACIST DISCHARGE MED REC CONSULT PRN (18:46)
[2020-05-01] MEDS ORDERED: COLCHICINE 0.6 MG TAB PO PRN (18:50)
--- NOTE | 2020-05-01 19:06 | Electrocardiogram Report ---
Test Reason : Blood Pressure : / mmHG Vent. Rate : 068 BPM Atrial Rate : 068 BPM P-R Int : 170 ms QRS Dur : 110 ms QT Int : 430 ms P-R-T Axes : 006 -55 070 degrees QTc Int : 457 ms Normal sinus rhythm Incomplete right bundle branch block Left anterior fascicular block Abnormal ECG When compared with ECG of 10-APR-2019 10:57, Premature ventricular complexes are no longer Present Incomplete right bundle branch block is now Present Confirmed by Pa Marinelli ([id number]) on 05/01/2020 7:06:03 PM Referred By: Hillary Catalan Confirmed By:Jhonny Marinelli
--- NOTE | 2020-05-01 21:09 | Magnetic Resonance Report ---
MRI OF THE BRAIN WITHOUT CONTRAST CLINICAL HISTORY: Paresthesias COMPARISON STUDY: CT scan dated 05/01/2020 FINDINGS: Sagittal T1, axial diffusion, proton density and T2 weighted axial, coronal FLAIR, and axial T1-weigh shani images were acquired. No intra or extra-axial mass lesions are visualized Axial diffusion-weighted images reveal no evidence of acute or subacute infarction. There is mild ventricular prominence, likely secondary to volume loss. Proton density T2-weighted and FLAIR images reveal there are moderate white matter hypodensities, lik [place] small vessel basis. There are old bilateral lacunar infarcts. There are no abnormal flow voids. IMPRESSION: 1. No acute intracranial findings 2. No evidence of intracranial mass 3. No evidence of acute or subacute infarction 4. Moderate white matter disease likely on a small vessel ischemic basis 5. 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 Electronically signed by: Cristi Mcwilliams M.D. 05/01/2020 9:08 PM
[2020-05-02 06:16] LABS: Estimated Average Glucose 126 mg/dl
[2020-05-02 07:01] LABS: Basophils # (auto) 0.05 K/uL (0-0.2); Basophils % (auto) 0.8 %; Eosinophils # (auto) 0.36 K/uL (0-0.5); Eosinophils % (auto) 5.8 %; Hematocrit (blood only) 39.9 % (42-52); Hemoglobin 13.1 g/dL (14.0-18.0); Immature Granulocytes # (auto) 0.01 K/uL (0.00-0.02); Immature Granulocytes % (auto) 0.2 %; Lymphocytes # (auto) 1.81 K/uL (1.2-3.4); Mean Corpuscular Hemoglobin 31.7 pg (25-34); Mean Corpuscular Hgb Conc 32.8 g/dL (32-36); Mean Corpuscular Volume 96.6 fL (80-100); Mean Platelet Volume 10.9 fL (7.4-10.4); Monocytes # (auto) 0.44 K/uL (0.11-0.59); Monocytes % (auto) 7.1 %; Neutrophils # (auto) 3.57 K/uL (1.4-6.5); Neutrophils % (auto) 57.1 %; Platelet Count 208 K/uL (130-400); RDW Coefficient of Variation 14.4 % (11.5-14.5); RDW Standard Deviation 51.4 fL (36.4-46.3); Red Blood Count 4.13 M/uL (4.7-6.1); White Blood Count 6.24 K/uL (4.8-10.8)
[2020-05-02 07:35] LABS: Calcium 9.2 mg/dl (8.5-10.1); Creatinine Clr Calc Pharmacy 50.2 ml/min; Est GFR (African American) 86.9; Potassium 4.2 mmol/L (3.5-5.1)
[2020-05-02] MEDS ORDERED: ASPIRIN 81 MG ECTAB PO SCH (09:00)
[2020-05-02 10:42] LABS: Lyme Ab IgG w/WB Rflx Positive (Negative); Lyme Ab IgM w/WB Rflx Negative (Negative)
--- NOTE | 2020-05-02 10:45 | Neurology Consultation ---
Date of Consultation May 02, 2020 Assessment & Plan (1) Transient cerebral ischemia: This patient's symptoms seem suggestive of recurrent TIA localizing to the left cerebral hemisphere or left thalamus. He does have a 50 to 60% stenosis at the origin of the left middle cerebral artery. He also has evidence of rather extensive chronic cerebrovascular disease and multiple old bilateral lacunar infarcts. I do not see any evidence of an acute or evolving infarct within the left thalamus on MRI. The observed 50 to 70% stenoses of the carotid bifurcations and proximal internal carotid arteries bilaterally is of undetermined clinical significance. His blood pressure has been notably e levated. I agree with the addition of low-dose aspirin to this patient's current medication regimen for the time being. He may continue with both daily low-dose aspirin and clopidogrel for the next 3 weeks. After which, however, he should discontinue the aspirin and continue with clopidogrel monotherapy. Long-term use of dual antiplatelet therapy for stroke is typically not recommended due to bleeding risk. Would consider switching patient's statin to atorvastatin. Continue medical management of hypertension. Systolic blood pressure goal 140 to 160 mmHg acutely. Long-term systolic blood pressure goal closer to 140 mmHg. Would order echocardiogram if not already done so. Consider 30-day cardiac event monitor. No further recommendations. History of Present Illness Reason for Consultation: Paresthesias, TIA Requesting Physician: Redd Dias Attending Physician: Julio Hirsch History of Present Illness The patient is an 89-year-old male with a chief complaint of episodic right sided tingling that began 3 weeks ago. The episodes have been occurring multiple times per day and last for about 10 to 15 seconds. The numbness involves the right side of the face as well as the right upper and lower limb. He denies experiencing any associated weakness, change in speech, or change in vision. The episodes occur without obvious trigger. The right-sided numbness affects the face arm and leg equally at onset. It does not begin in a focal area such as the hand and propagate. There is no associated alteration in level of awareness or consciousness during these episodes. No abnormal movement of the limbs or obvious convulsive activity. No associated headache. Past medical history notable for stroke/TIA with a notable episode occurring in 2013 characterized by right-sided numbness. Past medical history notable for hypertension and hyperlipidemia. Patient has been taking clopidogrel, pravastatin, and amlodipine as an outpatient. A CT of the head completed yesterday revealed chronic small vessel disease and multiple old bilateral lacunar infarcts. A CT angiogram of the head revealed moderate multifocal stenoses. A CT angiogram of the neck revealed atherosclerotic plaque and moderate stenoses of the proximal internal carotid arteries bilaterally. An MRI of the brain was negative for acute or subacute infarct. Imaging described in further detail below. Allergies Allergy/AdvReac Type Severity Reaction Status Date / Time diphenhydramine Allergy Severe HYPOTENSION- Verified 05/01/20 18:09 SIGNIFICANT X 8 WEEKS acetaminophen Allergy Intermediate SKIN Verified 05/01/20 18:09 WEEPING cefadroxil Allergy Intermediate HALLUCINATI Verified 05/01/20 18:09 ONS ciprofloxacin Allergy Intermediate HALLUCINATI Verified 05/01/20 18:09 ONS Quinolones Allergy Intermediate HALLUCINATI Verified 05/01/20 18:09 ONS aspirin AdvReac Intermediate DEPRESSION Verified 05/01/20 18:09 cinnamon AdvReac Intermediate HYPERACTIVI Verified 05/01/20 18:09 TY clove AdvReac Intermediate HYPERACTIVI Verified 05/01/20 18:09 TY codeine AdvReac Intermediate MENTAL Verified 05/01/20 18:09 STATUS CHANGES Cipro AdvReac Unknown HALLUCINATI Verified 06/25/16 06:45 ONS Home Medications Home Medications Medication Instructions Recorded Confirmed Type colchicine 0.6 mg PO BID PRN 05/02/19 05/01/20 History garlic 1,000 mg capsule 1,000 mg PO QDD 05/28/19 05/01/20 History glucosamine sulfate 500 mg tablet 500 mg PO QDD tab 05/28/19 05/01/20 History allopurinol 300 mg PO QDD 05/01/20 05/01/20 History amlodipine 2.5 mg PO QDD 05/01/20 05/01/20 History clopidogrel 75 mg PO QDD 05/01/20 05/01/20 History pravastatin 20 mg PO QDD 05/01/20 05/01/20 History Patient History Medical History Acquired foot drop (Acute) Benign essential hypertension (Acute) BPPV (benign paroxysmal positional vertigo) Cervicalgia (Acute) Emphysema lung PER CXR Gout History of TIA (transient ischemic attack) (Acute) Hyperkalemia (Acute) Hyperlipidemia 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 Osteoarthritis Osteoarthritis of right knee (Acute) Osteoarthrosis, generalized, multiple joints (Acute) Personal history of colonic polyps (Acute) Prostate cancer TIA (transient ischemic attack) 2014= INITIALLY ON ASA 325 BUT SIGNIFICANT DEPRESSION SYMPTOMS SO PATIENT SWITCHED TO PLAVIX TIA (transient ischemic attack) White coat syndrome with hypertension Surgical History H/O wrist surgery LEFT History of adenoidectomy History of arthroplasty of left ankle History of colonoscopy History of herniorrhaphy RT INGUINAL History of hip surgery RT History of knee replacement LEFT/RIGHT History of knee surgery LEFT/RIGHT History of lumbar surgery TOTAL 4 BACK SURGERIES (HARDWARE INTACT) History of nasal septoplasty History of prostate surgery History of tonsillectomy History of tooth extraction S/P inguinal hernia repair 05/02/19 open left- Dr. 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 Beliefs That Will Affect Care: None Current Living Situation: Spouse and Family Feels Safe at Home: Yes Smoking Status: Never smoker Second Hand Exposure: No ; Hx Alcohol Use: No Hx Substance Use: No Review of Systems Constitutional: no fever, no chills and no fatigue Eyes: no blind spots and no diplopia Ear, Nose, Mouth, Throat: no hearing loss Respiratory: no cough and no dyspnea Cardiovascular: no chest pain and no palpitations Gastrointestinal: no nausea and no vomiting Genitourinary: no dysuria Musculoskeletal: no neck pain and no myalgia Integumentary: no rash and no lesions Neurologic: as per Subjective / HPI and + paresthesia; no localized weakness, no headache(s), no confusion and no memory loss Psychiatric: no depression and no anxiety Hematologic / Lymphatic: no easy bleeding and no easy bruising Exam (Neuro) Constitutional: well developed and well nourished; no acute distress Eyes: normal visual ramsey by confrontation, PERRL, normal accommodation and EOM intact bilaterally; no fundoscopic abnormality, no nystagmus and no papilledema Cardiovascular: Vessels: normal carotid upstroke; no carotid bruit Neurologic: Oriented to:: Person, Place and Time Memory: Short Term Intact and Remote Intact Attention: Span Intact and Concentration Intact Language: Naming Objects and Repeating Phrases Speech Fluency: negative Dysarthria Speech Aphasia: negative Aphasia Fund of Knowledge: Current Events, Past History and Vocabulary Cranial Nerves: Normal II (Visual ramsey full to confrontation, visual acuity normal), III, IV, (Pupils equal round reactive to light and accommodation, eye movements normal), V (Facial sensation intact), VII (There is no facial droop or weakness), VIII (Hearing intact), IX, X (Palate elevates to midline), XI (Shoulder shrug intact) and XII (Tongue pr otrudes to midline) Motor Strength: Normal Lower Extremities and Normal Upper Extremities; negative Pronator Drift Motor Tone: Normal Lower Extremities and Normal Upper Extremities Muscle Bulk/Involuntary Movements: No Involuntary Movements; negative Muscle Atrophy Sensation: Light Touch Intact, Pain/Temperature Intact and Proprioception Intact; negative Vibration Intact (Moderate distal vibratory loss at the ankles noted) Coordination: Normal; negative Limited Balance, Dysdiadochokinesia, Finger-Nose Abnormal and Heel-Miller Abnormal Deep Tendon Reflexes: Rt Triceps: 2+, Lt Triceps: 2+, Rt Biceps: 2+, Lt Biceps: 2+, Rt Brachioradialis: 2+, Lt Brachioradialis: 2+, Rt Patellar: 2+, Lt Patellar: 2+, Rt Ankle: 1+ and Lt Ankle: 1+ Special Tests: negative Babinski Present Details: Gait not tested in the context of patient's current neurological/medical condition for safety concerns Results & Data ([facility]) Vital Signs (Past 12 Hours) Vital Signs Temp Pulse Pulse Resp BP BP Pulse Ox 05/02/20 07:38 36.8 C 73 18 134/72 98 05/02/20 01:18 68 05/02/20 01:14 65 05/01/20 23:45 37.0 C 56 L 16 125/69 95 Laboratory Results WBC 5.25, hemoglobin 12.3, hematocrit 37.6, platelet count 203, ESR 17, sodium 142, potassium 4.2, BUN 22, creatinine 0.91, glucose 89, hemoglobin A1c 6.0, calcium 9.2, magnesium 2.1, triglycerides 123, cholesterol 172, LDL 101, VLDL 25, HDL [address] of the head negative for hemorrhage or acute process. There is moderate small vessel ischemic disease and several old bilateral lacunar infarcts. CTA of the head reveals 50% narrowing of the proximal basilar artery, 50% narrowing at the origin of the right posterior cerebral artery, and a 50 to 60% stenosis at the origin of the left middle cerebral artery. CTA of the neck reveals sig nificant plaque at the common carotid arteries bilaterally, without significant stenosis. There are 50 to 70% stenoses at the carotid bifurcations and proximal internal carotid arteries bilaterally. MRI of the brain is negative for acute or subacute infarct. There is moderate chronic small vessel ischemic disease as well as multiple old lacunar infarcts. I reviewed the images as well as the ra diologist's interpretation of these test. An electrocardiogram reveals a normal sinus rhythm, 68 bpm. Coding Level of Care Code 83118 Initial Inpt Care Lvl 3 Diagnoses Transient cerebral ischemia G45.9 Transient cerebral ischemia type: unspecified (1) Transient cerebral ischemia Transient cerebral ischemia type: unspecified Qualified Code(s): G45.9 - Transient cerebral ischemic attack, unspecified
[2020-05-02] MEDS ORDERED: CYANOCOBALAMIN 500 MCG TABLET (VITAMIN B-12) PO SCH (11:00)
[2020-05-02] MEDS ORDERED: DOXYCYCLINE HYCLATE 100 MG CAP PO STA (14:36)
--- NOTE | 2020-05-02 14:45 | XCELERA ---
[id number]
[2020-05-02] MEDS ORDERED: allopurinoL 300 MG TAB PO SCH (16:30)
[2020-05-02] MEDS ORDERED: AMLODIPINE BESYLATE 5 MG TAB PO SCH (16:30)
[2020-05-02] MEDS ORDERED: CLOPIDOGREL BISULFATE 75 MG TAB PO SCH (16:30)
[2020-05-02] MEDS ORDERED: NON-FORMULARY MEDICATION (Glucosamine Sulfate [Glucosamine] 500 MG) PO SCH (16:30)
[2020-05-02] MEDS ORDERED: NON-FORMULARY MEDICATION (Garlic 1,000 MG) PO SCH (16:30)
[2020-05-02] MEDS ORDERED: PRAVASTATIN SOD 20 MG TAB PO SCH (17:00)
[2020-05-02] MEDS ORDERED: STROKE PATIENT DISCHARGE STA (18:18)
--- NOTE | 2020-05-02 18:28 | Discharge Summary ---
Date of Service date of admission - May 01, 2020 date of discharge - May 02, 2020 Admission HPI Per Admitting Provider This is a pleasant 89-year-old male who has a past medical history of TIA who presents to the ER with 3 week history of intermittent paresthesias on his right arm and right leg. These paresthesias last about 30 to 40 seconds each episode and sometimes occur multiple times per day. He reports they mainly occur when he is sitting down for dinner. Patient denies any other complaints such as weakness, dizziness, nausea, vomiting, blurry vision, chest pain. 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 Principal Diagnosis 1. TIAs 2. Lyme IgG antibody positive Discharge Exam Constitutional + thin; no acute distress and no altered mental status Eyes PERRL ENMT external ear and nose normal, oropharynx normal Respiratory normal respiratory effort, lungs clear to auscultation Cardiovascular Rate/Rhythm: regular rate and regular rhythm Heart Sounds: normal S1 and normal S2; no murmur Vessels: posterior tibial pulses present and dorsalis pedis pulses present; no JVD Extremities: no edema Gastrointestinal (Abdomen) normal bowel sounds, soft, nontender, no hepatosplenomegaly Neurologic deep tendon reflexes 2+ bilaterally, moves all extremities (Except has right chronic foot drop) and + focal motor deficit (Chronic right sided foot drop ) Motor/Sensory: no pronator drift Psychiatric A+Ox3, euthymic affect Discharge Data Allergies Allergy/AdvReac Type Severity Reaction Status Date / Time diphenhydramine Allergy Severe HYPOTENSION- Verified 05/01/20 18:09 SIGNIFICANT X 8 WEEKS acetaminophen Allergy Intermediate SKIN Verified 05/01/20 18:09 WEEPING cefadroxil Allergy Intermediate HALLUCINATI Verified 05/01/20 18:09 ONS ciprofloxacin Allergy Intermediate HALLUCINATI Verified 05/01/20 18:09 ONS Quinolones Allergy Intermediate HALLUCINATI Verified 05/01/20 18:09 ONS aspirin AdvReac Intermediate DEPRESSION Verified 05/01/20 18:09 cinnamon AdvReac Intermediate HYPERACTIVI Verified 05/01/20 18:09 TY clove AdvReac Intermediate HYPERACTIVI Verified 05/01/20 18:09 TY codeine AdvReac Intermediate MENTAL Verified 05/01/20 18:09 STATUS CHANGES Cipro AdvReac Unknown HALLUCINATI Verified 06/25/16 06:45 ONS Consultations Neurology - [facility] [place] - Dr Carter Canas PT, OT, speech therapy Ordered Studies CT angio head w con Stat IMPRESSION: 1. 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 2. 50% narrowing origin right posterior cerebral artery. 3. 50/60% stenosis origin left middle cerebral artery. CT angio neck with con Stat IMPRESSION: 1. Severe tortuosity and ectasia of the arterial structures of the neck. 2. Significant plaque formation of the common carotid arteries bilaterally with no evidence for high grade or critical stenosis at those sites. 3. 50-70% narrowing of the carotid bifurcations and proximal internal carotid arteries bilaterally. MR brain wo con Routine IMPRESSION: 1. No acute intracranial findings 2. No evidence of intracranial mass 3. No evidence of acute or subacute infarction 4. Moderate white matter disease likely on a small vessel ischemic basis 5. 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 Echocardiogram - * EF 50-55% * mild aortic root dilatation * no thrombus * bubble study not performed; prior echo with bubble study in the past showed shunt suggestive of PFO Hospital Course (1) TIA (transient ischemic attack): The patient underwent TIA work-up including CTA head/neck, MRI brain, echo, and telemetry monitoring. CTA head showed numerous stenotic lesions including the left MCA. MRI brain showed old lacunar infarcts but no new stroke. Echo without thrombus or valvular disease (bubble study deferred; he has a known PFO). Telemetry did not show a.fib/flutter. He was seen in consult by Dr Carter Canas, [facility] [place] Neurology, who felt he was having recurrent TIAs. Recommendations were as follows - * 30-day outpatient event monitor to rule out paroxysmal a.fib as the cause of his symptoms * addition of low-dose aspirin 81mg daily for 3 weeks then stop * indefinite use of plavix 75mg daily * change of statin to lipitor 40mg daily Although Lyme IgG antibody was positive it was not felt that the patient had neuro Lyme disease. PT, OT, speech saw patient in consult - cleared for home. Stroke instructions were given at discharge. (2) Positive Lyme disease serology: IgM antibody negative. IgG antibody positive -- Western Blot dispatched. Patient is an active morris and is at high risk of tick-borne disease. Difficulty to say if he could have early disseminated Lyme disease / neuro Lyme's. While awaiting Western Blot he was given 2-week doxycycline course along with PPI for GI prophylaxis. If Western Blot is positive may need to consider extending the course to 4 weeks especially if there is any concern it is contributing to nervous system disease. (3) Benign essential hypertension: continue home BP meds (4) Osteoarthrosis, generalized, multiple joints: (5) Acquired foot drop: right has AFO device (6) Hyperlipidemia: LDL 101 on lipid profile in light of significant atherosclerotic disease seen on CTA head/neck his statin was changed to lipitor 40mg daily (7) Chronic kidney disease, stage 3a: baseline CrCl 40s/50s Total Time Total Time Spent Total Time Spent (In Minutes): 40 Total Time Includes: Examination of the Patient, Discharge Planning, Medication Reconciliation and Communication With Other Providers Discharge Plan Discharge Items Patient Disposition: Home - Self-Care Reason For Visit: numbness of right arm & leg Discharge Diagnosis: 1. Numbness of right arm & leg - suspected to be from "TIAs" (transient ischemic attack) - see handouts 2. Positive Lyme Disease Screening Test - confirmatory testing is pending (will take about 1 week to determine if you have Lyme Disease) Activity: As commented below Activity Comment: please take it easy over the next 5 days, then gradually increase activity Driving/Machine Use: Resume 3 days after discharge Non-emergency contact: Primary Care Provider Call non-emergency contact if: you have any medication questions and your symptoms worsen Follow-up/Referrals: Hillary Catalan MD [Primary Care Provider] - (Please, follow up with Dr. Catalna. *A nurse from this office will contact you with the appointment details. *The office phone number is [phone]. A CARDIAC EVENT MONITOR WILL BE MAILED TO YOUR HOME. THE KIT WILL INCLUDE EASY TO FOLLOW INSTRUCTIONS. THE RESULTS WILL BE SENT TO DR. CATALAN.) Diet: Heart Healthy Addtl Attending Provider Instructions: You were admitted to the hospital because of recurrent episodes of numbness in your right arm and right leg. We performed an MRI of the brain which showed old strokes but not a NEW stroke that would be causing your current symptoms. Dr Canas from [facility] saw you and felt that your episodes of numbness are coming from "TIAs." A TIA - also known as "transient ischemic attack" - is not a stroke. However, a TIA is a risk factor for a stroke. We found considerable plaque build-up/hardening of the arteries in your head and neck which is the likely cause of your TIAs. We also found that your Lyme Disease screening test was positive. At this time we do not know if you actually have Lyme. A confirmatory test has been sent. If you do indeed have Lyme it is difficult to know if it is contributing to your numbness episodes. Recommendations - 1. take aspirin 81mg once daily for 20 days (starting tomorrow) then STOP. 2. STOP your pravastatin. In its place START atorvastatin 40mg once daily. 3. take pantoprazole 40mg once daily for 1 month. This will protect your stomach from irritation while you are on the aspirin and doxycycline. 4. take doxycycline antibiotic 100mg twice daily for 14 days while awaiting your Lyme Testing. Doxycycline can - * cause heartburn * cause a rash if you go out in the sun while taking it; thus, cover up and use sunscreen 5. A 30-day monitor will be mailed to your home by next week. This is to detect heart rhythm problems that can cause TIA, numbness, stroke, etc. It will contain instructions on how to use. 6. Wear a mask at all times when you leave your home to lower your chances of omid COVID-19 (coronavirus). 7. Take [id number]-pvrylzl vitamin B12 1000mcg daily for 6 months. [facility] will have it in the vitamin section. Follow-up - see your family doctor within 1 week Return to [facility] if - * you have fever over 100.4 degrees * you have sudden weakness of any limb * you have sudden difficulty speaking, swallowing * you have sudden loss of vision * you have spinning/vertigo/difficulty walking * any other concerns Addtl [employer] Provider Instructions: Risk Factors for TIA and Stroke: You can reduce your chances of stroke by working with your medical provider to adopt a healthy lifestyle. Some specific ways to lower your chance of stroke are: * If you are a smoker, now is the time to stop smoking cigarettes * If you are diabetic, improve the control of your blood sugars * Avoid excessive amounts of alcohol * Control high blood pressure * Lose weight if you are overweight * Be sure to lead an active lifestyle * Eat a healthy diet low in salt, cholesterol and fat You should know about other risk factors for stroke that you are unable to control. These include: * Age 55 years or older * Male gender * Certain racial groups: , or / * Family History of Stroke, Mini stroke or Heart Attack * Sickle Cell Disease Who to Call and When: Medical Emergencies: Call 911 immediately if you experience any of the following warning signs and symptoms of Stroke: * Sudden numbness or weakness of the face, arm or leg, especially on one side of the body * Sudden confusion, trouble speaking or understanding * Sudden trouble seeing in one or both eyes * Sudden trouble walking, dizziness, loss of balance or coordination * Sudden severe headache with no cause Do not delay calling 911 if you experience any warning signs or symptoms of a stroke. Delay in seeking medical attention may affect what treatments can be given to you. . Pending Studies at Discharge: Yes Studies:: Confirmatory Lyme Testing - I will call you with your test results Stand-Alone Forms: Medications to Prevent Stroke, My [facility], Smoking Cessation Medications and DC Order Prescriptions: New cyanocobalamin (vitamin B-12) 500 mcg Tablet 1,000 mcg PO QAM Qty: 60 RF: 11 atorvastatin [Lipitor] 40 mg tablet 40 mg PO DAILY Qty: 30 RF: 5 pantoprazole [Protonix] 40 mg tablet,delayed release (DR/EC) 40 mg PO DAILY Qty: 30 RF: 0 doxycycline hyclate 100 mg capsule 100 mg PO BID 14 Days Qty: 28 RF: 0 aspirin 81 mg tablet,delayed release (DR/EC) 81 mg PO DAILY 20 Days Qty: 20 RF: 0 Continued garlic 1,000 mg capsule 1,000 mg PO QDD RF: 0 glucosamine sulfate [Glucosamine] 500 mg tablet 500 mg PO QDD RF: 0 colchicine 0.6 mg tablet 0.6 mg PO BID PRN (Reason: Gout Flare Up Pain) RF: 0 amlodipine 2.5 mg tablet 2.5 mg PO QDD RF: 0 clopidogrel 75 mg tablet 75 mg PO QDD RF: 0 allopurinol 300 mg tablet 300 mg PO QDD RF: 0 Discontinued pravastatin 20 mg tablet 20 mg PO QDD RF: 0 Discharge Orders: Discharge Order (Routine); Ordered 05/02/20 Ordered By: Julio Fernando/Other Patient Handouts: What Is a TIA?, ED TIA: Transient Ischemic Attack, A1C Admission Data Admit Date/Time: 05/01/20 18:44 Attending Provider: Julio Hirsch Admit Provider: Redd Dias Primary Care Provider: Hillary Catalan Other Providers: Carter Canas ; Redd Dias Other Interventions: Discharge Summary Assessment (RN) Last Done: 05/02/20 16:12 DC Date/Time DO NOT enter until pt leaves facility: 05/02/20 19:15 Coding Level of Care Code 73327 OBS Care - Discharge Diagnoses TIA (transient ischemic attack) G45.9 Positive Lyme disease serology R76.8 Benign essential hypertension I10 Osteoarthrosis, generalized, multiple joints M15.9 Acquired foot drop M21.379 Hyperlipidemia E78.5 Chronic kidney disease, stage 3a N18.3
--- NOTE | 2020-05-02 18:58 | Pharmacy Report ---
Pharmacist Stroke Counseling - Date of Service May 02, 2020 - Scope: Pharmacy has been consulted to provide medication discharge counseling for this patient admitted with transient ischemic attack as per the Pharmacist Discharge Counseling for Stroke Patients Protocol. - Medications on Discharge: Home Medications Medication Instructions Recorded Confirmed colchicine 0.6 mg PO BID PRN 05/02/19 05/01/20 garlic 1,000 mg capsule 1,000 mg PO QDD 05/28/19 05/01/20 glucosamine sulfate 500 mg tablet 500 mg PO QDD tab 05/28/19 05/01/20 allopurinol 300 mg PO QDD 05/01/20 05/01/20 amlodipine 2.5 mg PO QDD 05/01/20 05/01/20 clopidogrel 75 mg PO QDD 05/01/20 05/01/20 New Rx's Medication Instructions Recorded aspirin 81 mg PO DAILY 20 Days #20 tab 05/02/20 atorvastatin [Lipitor] 40 mg PO DAILY #30 tab 05/02/20 cyanocobalamin (vitamin B-12) 1,000 mcg PO QAM #60 tab 05/02/20 doxycycline hyclate 100 mg PO BID 14 Days #28 cap 05/02/20 pantoprazole [Protonix] 40 mg PO DAILY #30 tab 05/02/20 - Action: The above medications, specifically ones for stroke treatment/prophylaxis, have been reviewed in detail with the patient and/or patient cash posting representative(s) prior to discharge. This includes indication, common adverse reactions, drug interactions, and medication administration. Medication counseling has been employed using the teach-back method to ensure understanding. - Outcome: The patient and/or patient cash posting representative(s) have demonstrated understanding of the medications. Additional comments: Spoke over the phone with Mr Mix eulogio. Reviewed new medications to prevent stroke including Aspirin and Atorvastatin. Reiterated that pravastatin is not to be continued (atorvastatin replaces it). Discussed why they are being used and common side effects in great detail. Reviewed how to use the medications, what to do if doses are missed, common drug interactions, common side effects, what to watch out for while using the medications, and how to store the medications. Pt verbalized understanding and restated the beaver points of each medication. Thank you for allowing pharmacy to be involved in the care of this patient. Please call [phone] with any additional questions
[2020-05-07 03:49] LABS: 18KDIGG Band REACTIVE; 23KDIGG Band NON-REACTIVE; 23KDIGM Band NON-REACTIVE; 28KDIGG Band REACTIVE; 30KDIGG Band REACTIVE; 39KDIGG Band REACTIVE; 39KDIGM Band NON-REACTIVE; 41KDIGG Band REACTIVE; 41KDIGM Band NON-REACTIVE; 45KDIGG Band REACTIVE; 58KDIGG Band REACTIVE; 66KDIGG Band REACTIVE; 93KDIGG Band NON-REACTIVE; Lyme Antibodies, WB IgG POSITIVE (NEGATIVE); Lyme Antibodies, WB IgM NEGATIVE (NEGATIVE)
== END 2020-05-02 19:15 | disposition home or self-care (01) ==
LOC: 2N 13:04 → ED 13:04 → SUATTDRO 18:44 → 2N 20:28